=== PATIENT | male | born 1960 | race Caucasian/White ===

== ENCOUNTER 2021-11-13 06:10 | Day surgery (SDC) | payer OTHER, SELFPAY ==
[2021-09-21 11:48] VITALS: BMI 29.0
--- NOTE | 2021-11-12 09:30 | P.CONAN_ITS ---
Documented by User: Bronwyn Flowers NP 11/12/21 09:31 HPI - Anesthesia Eval Consult details Narrative: 60yo M for Colonoscopy [facility] Past Medical History Medical History (Updated 09/21/21 @ 11:46 by Maria De Jesus Dick RN) HTN (hypertension) Prostate cancer Surgical History Surgical History (Updated 09/21/21 @ 11:46 by Maria De Jesus Dick RN) H/O colonoscopy Hx of appendectomy Hx of knee surgery Hx of prostatectomy Social History Social History Patient Tobacco Use Status: Never used Tobacco Use of substances other than those prescribed or required for medical reasons: No Are you DNR?: No Advance Directives: No Advance Directives Information Provided: Yes Advance Directives on File: No Meds Allergies Allergy/AdvReac Type Severity Reaction Status Date / Time No Known Allergies Allergy Verified 11/13/21 06:21 Home Medications Medication Instructions Recorded Confirmed Last Taken Type amlodipine 5 mg tablet 1 tab PO DAILY 09/21/21 09/21/21 11/13/21 05:15 History losartan 50 mg tablet 1 tab PO BID 09/21/21 09/21/21 11/13/21 05:15 History sildenafil 25 mg tablet (Viagra) 25 mg PO DAILY PRN 09/21/21 09/21/21 Unknown History Exam Exam Date and Time: November 12, 2021 0930 Height,Weight and Vital Signs: Height 5 ft 8 in Weight 86.636 kg Assessment and Plan Assessment Anesthesia Assessment: Chart Reviewed Documented by User: Osmin Seaman MD 11/13/21 17:17 [facility] Past Medical History Medical History (Updated 09/21/21 @ 11:46 by Maria De Jesus Dick RN) HTN (hypertension) Prostate cancer Functional capacity: independent ambulation Family History Family history of problems with anesthesia: No Surgical History Surgical History (Updated 09/21/21 @ 11:46 by Maria De Jesus Dick RN) H/O colonoscopy Hx of appendectomy Hx of knee surgery Hx of prostatectomy History of Problems with Anesthesia: No Social History Social History Patient Tobacco Use Status: Never used Tobacco Use of substances other than those prescribed or required for medical reasons: No Are you DNR?: No Advance Directives: No Advance Directives Information Provided: Yes Advance Directives on File: No Meds Allergies Allergy/AdvReac Type Severity Reaction Status Date / Time No Known Allergies Allergy Verified 11/13/21 06:21 Home Medications Medication Instructions Recorded Confirmed Last Taken Type amlodipine 5 mg tablet 1 tab PO DAILY 09/21/21 09/21/21 11/13/21 05:15 History losartan 50 mg tablet 1 tab PO BID 09/21/21 09/21/21 11/13/21 05:15 History sildenafil 25 mg tablet (Viagra) 25 mg PO DAILY PRN 09/21/21 09/21/21 Unknown History Exam Airway Mallampati Class: III TM Dist: >3cm Neck ROM: Full Loose/Missing/Broken Teeth: Yes (Caps) Heart: rrr Lungs: bl breath sounds Assessment and Plan Final Anesthetic Review Family History of Problems with Anesthesia: No History of Problems with Anesthesia: No NPO: Yes ASA Class: II Final Preanesthetic Review: Meds/Allgs Chart Reviewed, Consent Obtained/Reviewed and Anes Risks/Benef Reviewed Patient Risk: Intermediate Procedure Risk: Intermediate Anesthetic Plan Anesthetic Plan: MAC: Disposition: Standard PACU
[2021-11-13 06:28] VITALS: BMI 27.3
[2021-11-13 06:33] VITALS: BP 148/70; PULSE 72; RESP 14; TEMP 37.1; O2SAT 97
[2021-11-13] MEDS: Lactated Ringers 1,000 ML 100 ML IVCONT (06:46)
--- NOTE | 2021-11-13 07:21 | MHC.SHP ---
Pre-Procedural Eval Section A Date of Service: 11/13/21 Section B Chief Complaint: screening Details of Present Illness: screening Relevant Family History (Specify if Yes): No Relevant Social History: None Present Medications: see Short Stay Collaborative assessment Medical History: No relevant PMH History of Previous Operations: No relevant previous surgery Allergies: Allergies Allergy/AdvReac Type Severity Reaction Status Date / Time No Known Allergies Allergy Verified 11/13/21 06:21 Review of Systems Sugical H&P ROS: Negative: Constitution, Cardiovascular, Respiratory, Neurological, Psychiatric, Hem-Onc, Allergic/Immunologic, Gastrointestinal, Genitourinary, Musculoskeletal, Integumentary, Endocrine and Eyes/Ears/Nose/Throat Exam Surgical H&P Exam: Normal: HEENT, Normal: Heart, Normal: Lungs, Normal: Extremities, Normal: Abdomen, Normal: Skin and Normal: Neurological Plan Diagnosis/Plan: Unchanged I have reviewed the history and physical and performed a pertinent physical examination on my patient. No changes have occurred unless specified.
--- NOTE | 2021-11-13 07:59 | PM.OP ---
Brief Operative Note Date of Service: 11/13/21 Pre-op diagnosis: screening Post-op diagnosis: same Surgeon: Prasad Mora Anesthesia: MAC Was an Gearcase Assembler used for this Procedure?: No Estimated blood loss (mL): 2 Pathology: other (rectal polyp) Condition: stable Disposition: PACU
[2021-11-13 08:00] VITALS: BP 86/53; PULSE 74; RESP 16; TEMP 36.2; O2SAT 97
[2021-11-13 08:15] VITALS: BP 111/62; PULSE 73; RESP 20; TEMP 36.2; O2SAT 98
--- NOTE | 2021-11-13 09:53 | OP_ITS ---
SURGEON: Prasad Mora MD INDICATIONS: Colon cancer screening and prior history of adenomatous colon polyps. PREOPERATIVE DIAGNOSIS: POSTOPERATIVE DIAGNOSIS: PROCEDURE PERFORMED: Colonoscopy to the terminal ileum with biopsy. ESTIMATED BLOOD LOSS: COMPLICATIONS: ANESTHESIA: ASSISTANTS: SPECIMENS: MEDICATIONS: Monitored anesthesia care. DESCRIPTION OF PROCEDURE: The history and physical were performed. The risks and benefits of the procedure were explained to the patient. An informed consent was obtained. The patient was placed in the left lateral decubitus position. A digital rectal exam was performed and was found to be normal. The Olympus pediatric video colonoscope was introduced into the rectum and advanced to the cecum without difficulty. The cecum was identified by transillumination, palpation, and identification of ileocecal valve. Examination was performed and the scope was removed. He tolerated the procedure well and was transferred to recovery area in stable condition. FINDINGS: The terminal ileum was normal. The visualized colonic mucosa was normal. The quality of prep was good. There was a single rectal polyp measuring less than 5 mm, which was removed with biopsy forceps. No other polyps were identified. Retroflexed examination showed small internal hemorrhoids. IMPRESSION: Colon polyp. RECOMMENDATION: Follow up the biopsy results. MD PAOLA Call/ADWOA / [phone]
== END 2021-11-13 08:48 | disposition home or self-care (01) ==
PROVIDERS: PCP Internal Medicine; Visit Provider Internal Medicine Gastroenterology
PROC: 0DJD8ZZ Inspection of Lower Intestinal Tract, Via Natural or Artificial Opening Endoscopic (ICD-10-PCS; CPT 45378; principal; 2021-11-13 07:30)
DX: Z12.11 Encounter for screening for malignant neoplasm of colon (principal); Z86.010 Personal history of colon polyps; D12.8 Benign neoplasm of rectum; K64.8 Other hemorrhoids; I10 Essential (primary) hypertension; Z85.46 Personal history of malignant neoplasm of prostate; Z79.899 Other long term (current) drug therapy
CPT/HCPCS: 45380; 88305